=== PATIENT | female | born 1980 | race Hispanic/Latino ===

== ENCOUNTER 2017-03-24 21:59 | Inpatient (IN) | payer OTHER ==
[2017-03-24 22:33] VITALS: BMI 29.2
[2017-03-24] MEDS ORDERED: Lactated Ringer's 1,000 ML IV SCH ×2 (23:23→23:30)
[2017-03-24] MEDS ORDERED: Nalbuphine 20 mg/ml Inj (1 ml) IVP PRN (23:45)
--- NOTE | 2017-03-25 00:12 | OBHP ---
Datetime: 03/24/2017 23:47 IP Adm Impression: Term, intrauterine IP Admit Plan: Admit to unit; Initiate labor protocol Admit Comment, IP Provider: 36yo g1 edc 6/7 by lmp _ 12wk us presents for elective induciton. She d enies srom, bleeding, decreased fm. she has had some irreg ctxs 3days ago. she stays ob hx has been uncomplicated. pmhx: denies pshx: denies shx: denies etoh, drugs or tobacco nkda medic: pnv i:[id number] induciton p: pt d/w dr bolton, will begin with pitocin Pelvic Type - PN: Adequate Extremities - PN: Normal Abdomen - PN: Normal Lungs - PN: Normal Heart - PN: Normal Neurologic - PN: Normal HEENT - PN: Normal General - PN: Normal Presentation-Admit: Vertex FHR - Baseline A Provider: 130 Membranes, Provider: Intact EGA AdmitDate IP: 39.3 Vital Signs Provider: Within Normal Limits IP Chief Complaint: Scheduled induction of labor NICHD Variability Prov Fetus A: Moderate 6-25bpm NICHD Accel Fetus A IP Provider: [id number] FHR Category Provider Fetus A: Category I NICHD Decel Fetus A IP Provider: None Dilatation, Provider: 3 Effacement, Provider: 80 Station, Provider: -2 Genitourinary Exam: Normal
[2017-03-25 00:21] LABS: BASO # 0.1 K/uL (0.0-0.2); BASO % 0.5 % (0.0-2.0); EOS # 0.2 K/uL (0.0-0.7); EOS % 1.1 % (0.0-4.0); HEMATOCRIT 36.3 % (34.0-47.0); LYMPH % 13.3 % (20.0-40.0); MEAN CELL VOLUME 95.3 fl (81.0-99.0); MEAN CORPUSCULAR HEMOGLOBIN 30.8 pg (27.0-31.0); MEAN CORPUSCULAR HGB CONC 32.3 g/dL (33.0-37.0); MEAN PLATELET VOLUME 10.9 fl (7.2-11.7); MONO # 1.1 K/uL (0.0-0.8); MONO % 7.8 % (0.0-10.0); NEUT # 11.4 K/uL (1.8-7.0); NEUT % 77.3 % (50.0-75.0); NRBC % 0.1 % (0.0-0.0); RED CELL DISTRIBUTION WIDTH 13.6 % (11.5-14.5); WHITE BLOOD COUNT 14.7 K/uL (4.8-10.8)
[2017-03-25 00:52] VITALS: BP 125/63; PULSE 63; RESP 18; TEMP 97.1; O2SAT 99
[2017-03-25] MEDS ORDERED: Oxytocin 30 units/LR 500ML 30 U/500 ML BAG IV SCH (03:00)
[2017-03-25] MEDS ORDERED: Lidocaine 1% Inj (20ml) ONE (10:40)
[2017-03-25] MEDS ORDERED: Benzocaine/Menthol SPRAY TOP PRN (11:19)
[2017-03-25] MEDS ORDERED: Oxycodone/Acetaminophen 5/325 mg Tab PO PRN ×4 (11:19→15:32)
--- NOTE | 2017-03-25 12:49 | OBDS ---
DELIVERY PERSONNEL Delivery Doctor: Alondra Orozco MD Crimping Machine Operator For Metal: Madisyn Giron RN MATERNAL INFORMATION Provider Comments: Delivered live baby boy at 10:43 AM the baby was bulb suctioned on the perineum a nd transferred to the maternal chest and the cord was clamped and cut and 3 vessels noted. The placen ta was delivered at 10:47 AM intact, the estimated blood loss was 150 mL. There was a first-degree va ginal laceration which is repaired with 2-0 Rapide. Pitocin was infused to assist in uterine involuti on. The mother tolerated the procedure well. Baby went to the [facility] baby [facility] weighing [id number] grams LABOR SUMMARY EDC: 03/28/2017 00:00 LABOR INFORMATION Onset of Labor: 03/24/2017 22:00 Group B Beta Strep: Negative Antibiotics # of Doses: 0 Antibiotics Time of Last Dose: 0 Steroids Given: None Reason Steroids Not Administered: Not Applicable MEMBRANES Membranes Rupture Method: Artificial Rupture of Membranes: 03/25/2017 08:45 Length of Rupture (hrs): 1.97 Amniotic Fluid Color: Bloody Amniotic Fluid Amount: Small Amniotic Fluid Odor: Normal STAGES OF LABOR Stage 3 hrs: 0 Stage 3 min: 4 Total Time in Labor hrs: 12 Total Time in Labor min: 47 VAGINAL DELIVERY Episiotomy: None Laceration Extension: First Degree Laceration Type: Vaginal Laceration Repair Note: repaired with 2.0 rapide Sponge Count Correct: Yes Sharps Count Correct: Yes BABY A INFORMATION Infant Delivery Date/Time: 03/25/2017 10:43 Method of Delivery: Vaginal Born in Route : No : N/A Forceps: N/A Vacuum Extraction: N/A Shoulder Dystocia : No SHOULDER DYSTOCIA BABY A Delivery Date/Time: 03/25/2017 10:43 PRESENTATION/POSITION BABY A Presentation: Cephalic Cephalic Presentation: Vertex Vertex Position: Right Occipital Anterior Breech Presentation: N/A PLACENTA INFORMATION BABY A Placenta Delivery Time : 03/25/2017 10:47 Placenta Method of Delivery: Spontaneous Placenta Status: Delivered SCORES BABY A Heart Rate 1 min: >100 bpm Resp Effort 1 min: Good Cry Reflex Irritability 1 min: Cough or Sneeze or Pulls Away Muscle Tone 1 min: Active Motion Color 1 min: Body [place], Extremities Blue SCORE 1 MIN: 9 Heart Rate 5 min: >100 bpm Resp Effort 5 min: Good Cry Reflex Irritability 5 min: Cough or Sneeze or Pulls Away Muscle Tone 5 min: Active Motion Color 5 min: Body [place], Extremities Blue SCORE 5 MIN: 9 INFORMATION BABY A Gestational Age at Delivery: 40.0 Gestational Status: Term Outcome : Liveborn Infant Condition : Stable Sex: Male IDENTIFICATION/MEDS BABY A ID Band Number: [id number] CORD INFORMATION BABY A No. Cord Vessels: 3 Nuchal Cord : Around Neck x1, Loose Nuchal Cord Other: compound arm Cord Blood Taken: Yes Infant Suction: Mouth; Nose
[2017-03-25] MEDS: Benzocaine/Menthol SPRAY TOP PRN (17:32)
[2017-03-26 06:54] LABS: HEMATOCRIT 30.8 % (34.0-47.0); MEAN CELL VOLUME 96.3 fl (81.0-99.0); MEAN CORPUSCULAR HEMOGLOBIN 32.2 pg (27.0-31.0); MEAN CORPUSCULAR HGB CONC 33.4 g/dL (33.0-37.0); RED CELL DISTRIBUTION WIDTH 13.8 % (11.5-14.5); WHITE BLOOD COUNT 12.9 K/uL (4.8-10.8)
--- NOTE | 2017-03-26 10:54 | OBPPN ---
Datetime: 03/26/2017 10:52 PP Pain Prov: Within normal limits PP Nausea Prov: Denies PP Flatus Prov: Yes PP Breasts Prov: Normal PP Heart Prov: Normal PP Lungs Prov: Normal PP Abdomen/Uterus Prov: Normal PP Lochia Prov: Normal PP Vulva/Perineum Prov: Normal PP CVA Tenderness Prov: Normal PP Extremities Prov: Normal PP Comments Phys Exam Prov: Fundus firm under umbilicus PP Impression Prov: Normal progression PP Plan Prov: Continue present management PP Progress Note Prov: Patient denies CP, no SOB, no N/V, tolerating PO diet, abdominal pain tolerab le with meds, mild lochia, ambulating/voiding well A/P PPD #1 1. Reg diet 2. Motrin/percocet prn pain 3. Encourage ambulation/ IP PP Procedures: None Vital Signs Provider PP: Reviewed; Within Normal Limits
[2017-03-26] MEDS: Benzocaine/Menthol SPRAY TOP PRN (23:30)
[2017-03-26] MEDS: Hydrocortisone-Pramoxine 1%-1% Foam(10 gm) TOP SCH (23:30)
[2017-03-27] MEDS: Hydrocortisone-Pramoxine 1%-1% Foam(10 gm) TOP SCH (09:20)
[2017-03-27] MEDS ORDERED: Pneumococcal 23-Valent Vaccine IM ONE (10:00)
--- NOTE | 2017-03-27 10:08 | OBDCSUM ---
Datetime: 03/27/2017 09:37 Discharged to, Provider: home Follow up at, Provider: OBGYN Disch Instr Activity: Normal activity Discharge Diagnosis, Provider: Term Delivered Follow up in weeks, Provider: 6 weeks. Disch Activity Restrictions: No lifting
--- NOTE | 2017-03-27 10:08 | OBPPN ---
Datetime: 03/27/2017 10:02 PP Pain Prov: Within normal limits PP Nausea Prov: Denies PP Flatus Prov: Yes PP BM Prov: Yes PP Breasts Prov: Not Done PP Heart Prov: Normal PP Lungs Prov: Normal PP Abdomen/Uterus Prov: Normal PP Lochia Prov: Not Done PP Vulva/Perineum Prov: Not Done PP CVA Tenderness Prov: Normal PP Extremities Prov: Normal PP Impression Prov: Normal progression PP Plan Prov: Discharge PP Progress Note Prov: She feels fine. Ready to go home. Tolerating diet. Ambulating without diffi culty A; S/P day 2 Dischage home follow up 6w Vital Signs Provider PP: Reviewed; Within Normal Limits
== END 2017-03-27 14:40 | disposition home or self-care (01) | DRG 775 ==
LOC: H.EROB2 21:59 → H.L&D 23:24 → H.OB/GYN 03-25 15:00
PROVIDERS: ADMIT Obstetrics & Gynecology Gynecology; ATTEND Obstetrics & Gynecology Gynecology
PROC: 4A1HXCZ Monitoring of Products of Conception, Cardiac Rate, External Approach (ICD-10-PCS; 2017-03-24)
PROC: 10E0XZZ Delivery of Products of Conception, External Approach (ICD-10-PCS; principal; 2017-03-25)
PROC: 10907ZC Drainage of Amniotic Fluid, Therapeutic from Products of Conception, Via Natural or Artificial Opening (ICD-10-PCS; 2017-03-25)
PROC: 0HQ9XZZ Repair Perineum Skin, External Approach (ICD-10-PCS; 2017-03-25)
PROC: 3E033VJ Introduction of Other Hormone into Peripheral Vein, Percutaneous Approach (ICD-10-PCS; 2017-03-25)
PROC: 3E0234Z Introduction of Serum, Toxoid and Vaccine into Muscle, Percutaneous Approach (ICD-10-PCS; 2017-03-27)
DX: O69.81X0 Labor and delivery complicated by cord around neck, without compression, not applicable or unspecified (principal); O09.523 Supervision of elderly multigravida, third trimester; Z37.0 Single live birth; O70.0 First degree perineal laceration during delivery; Z3A.39 39 weeks gestation of pregnancy; Z23 Encounter for immunization